=== PATIENT | female | born 1955 | race Caucasian/White ===

== ENCOUNTER 2023-10-01 19:15 | Emergency (ER) | payer MEDICARE, OTHER, SELFPAY ==
[2023-10-01 19:22] VITALS: BP 150/84
--- NOTE | 2023-10-01 19:51 | ED.GENMED ---
History of Present Illness
General
Chief Complaint: Heart Rate Problem
Source: patient and family
Exam Limitations: none
Time Seen by Provider: 10/01/23 19:35
Travel History
Have you had any contact with someone who has COVID-19?: No
Do you have any symptoms of coronavirus? Fever > 100 degrees, chills, cough, shortness of breath, sore throat, loss of taste or smell, muscle aches, or headache?: No
History of Present Illness
History of Present Illness:
68-year-old female with 4 to 5 days of tachycardia heart pounding racing episodes of diaphoresis. No chest pain. Some mild shortness of breath. Patient had had an epidural injection later last week. She restarted Mounjaro 5 days ago. Symptoms
started 4 days ago. Started on a beta-nidhi 12.5 mg metoprolol. This has been increased to 25 twice daily. Has seen cardiology. No history of arrhythmia issues. No underlying CAD. Some weight loss over the last week
Past History
Past History
ED Past Medical History: Arrthythmia (sinus tachycardia), GERD, HTN, Hypercholesterolemia and Other (multiple sclerosis, chronic back pain)
ED Past Surgical History: Cholecystectomy, (times 3), Orthopedic (Lumbar laminectomy 2013, lumbar discectomy june 2019) and Other (tummy Tuck, Lap band in and then lap band out, breast reduction surgery, all stone removal 2016)
Social History
Tobacco: Former smoker
Alcohol: None
Drug: None
Personal:
Living: with family
Employment: Employed
Family History
Family History: Other (reviewed and noncontributory)
Review of Systems
Review of Systems
All Other Systems: Not applicable
Constitutional: Denies fever
Cardiac: Denies chest pain or syncope
ABD/GI: Reports diarrhea; Denies abdominal pain
: Reports no symptoms
Phy Exam
Physical Exam
Physical Exam:
GENERAL: Alert and oriented in no apparent distress
EYE: Orbits normal.
NECK: Supple, no thyroid palpable
ENT: Pharynx without erythema
CARDIAC: Borderline tachycardic and regular no murmur.
LUNGS: Clear breath sounds,normal
ABDOMEN: Soft, without focal tenderness or distention
NEUROLOGICAL: Alert and oriented , grossly non-focal
SKIN: Warm and dry, no rash or lesion, no discoloration, skin intact.
MUSCULOSKELETAL: No edema,no deformity.Good color. Good color. No cyanosis or mottling. Good distal pulses
PSYCH: Normal and appropriate interaction.
Course
Orders/Labs/Results
Orders:
Orders
10/01/23 19:17
Electrocardiogram (*1) Urgent
Reason for Study: Tachycardia
EKG- Treatment ONCE
10/01/23 19:47
CT Chest Pe Study Urgent
Comment:
Reason For Exam: sob tachy
Cardiac Monitoring- Treatment ONCE
IV Insert/Care/Rem.- Treatment PRN
0.9% Sodium Chloride 1000 ml [Nss] 1,000 ml IV BOLUS
Pulse Ox/cont/shift [RESP] Stat
Quantity: 1
10/01/23 20:08
Complete Blood Count/With Diff Urgent
Comprehensive Metabolic Panel Urgent
Free T4 Urgent
TSH Reflex To Free T4 Urgent
Troponin I Urgent
10/01/23 22:48
Methimazole [Tapazole] 10 mg PO NOW STA
Abnormal Lab Results
10/01/23
20:08
Hgb 11.4 L g/dL
(12.0-16.0)
Hct 33.3 L %
(37.0-47.0)
MCV 77.4 L fL
(81.0-99.0)
MCH 26.5 L pg
(27.0-31.0)
Absolute Neuts (auto) 6.6 H 10^3/uL
(1.4-6.5)
Absolute Monos (auto) 1.5 H 10^3/uL
(0.1-0.6)
Monocytes % 13.8 H %
(1.7-9.3)
BUN 35 H mg/dl
(7-17)
Glucose 117 H mg/dl
(70-99)
Total Bilirubin 1.7 H mg/dl
(0.2-1.3)
ALT 54 H U/L
(0-35)
TSH (Reflex) < 0.02 L uIU/ml
(0.47-4.68)
Free T4 6.38 H ng/dl
(0.78-2.19)
10/01/23 20:08
10/01/23 20:08
Vital Signs
Initial and Last Documented VS:
Initial Vital Signs
Temp Pulse Resp BP Pulse Ox
98.5 F 113 18 150/84 99
10/01/23 19:22 10/01/23 19:22 10/01/23 19:22 10/01/23 19:22 10/01/23 19:22
Last Documented Vital Signs
Temp Pulse Resp BP Pulse Ox
98.5 F 107 16 127/64 96
10/01/23 19:22 10/01/23 22:30 10/01/23 22:30 10/01/23 22:08 10/01/23 22:30
MDM/Problems Addressed
Differential Diagnosis Includes:
Sinus tachycardia with some vague shortness of breath and episodes of diaphoresis. Patient preceding had an epidural which is unlikely to have any association. She has no symptoms related to this. She has no infectious symptoms. She has no
pleuritic chest pain. She does have mild shortness of breath. Considerations would include thyroid issue electrolyte issue. Pulmonary emboli. Workup in progress.
*Radiology
Radiology exam reviewed: radiology read reviewed (Negative CT of the chest)
*Pulse Oximetry
Patient hypoxic: no
*EKG
Interpreted by ED Provider?: Yes
Interpretation: abnormal
Comparison EKG: changes noted
Heart Rate: 110
Rate: tachycardiac
Rhythm: sinus
[place]: normal axis
Interval: normal interval
QRS Pattern: normal QRS
Ischemia: no ischemia
*Addresser Interpretation
Rate: tachycardiac
Interpretation: abnormal
Heart Rate: 106
Rhythm: sinus
*Critical Care Note
Total Time (30-74mins, 75-104mins- exclusive of procedures): Not Applicable
Update Note
Update Note:
Discussed with endocrinology. Methimazole 10 mg twice daily. Continue metoprolol and follow-up. Patient and family are comfortable with this approach.
ED Attending Note
-
Portions of this chart may have been created with voice recognition software.� Occasional wrong word or��sound alike� substitutions may have occurred due to the inherent limitations of voice recognition software.
Discharge Plan
Departure
Patient Disposition: Home (Routine Discharge)
Date of Disposition: 10/01/23
Time of Disposition: 22:42
Patient with high blood pressure during this ER visit?: Yes
Discharge Problem:
Hyperthyroidism, Tachycardia
Instructions: Hyperthyroidism (overactive thyroid), Tachycardia, BLOOD PRESSURE
Prescriptions:
New
methimazole 10 mg tablet
10 mg PO BID Qty: 60 0RF
No Action
atorvastatin 40 MG tablet
40 mg PO HS
losartan 25 MG tablet
25 mg PO DAILY
Mounjaro 15 mg/0.5 mL Pen Injector
15 mg SC FR
gabapentin 300 mg capsule
600 mg PO HS
gabapentin 100 mg capsule
200 mg PO DAILY
metoprolol succinate 25 mg tablet extended release 24 hr
25 mg PO BID@0800,1600
hydrochlorothiazide 12.5 mg tablet
12.5 mg PO DAILY
Referrals:
Melly Navas MD [Consulting Staff] - Follow up in 2-3 days
Shu Richardson DO [Family Provider] - Follow up in 2-3 days
Activity Restrictions/Additional Instructions:
The endocrinology group should call you tomorrow for close follow-up
Interventions
Interventions:
*Risk Screen - Suicide Last Done: 10/01/23 19:22
*General Assessment Last Done: 10/01/23 19:22
*Neglect/Abuse Screening Last Done: 10/01/23 19:22
ED- Fall Risk Assessment Last Done: 10/01/23 20:19
*ED COVID-19 Vaccine History Last Done: 10/01/23 20:19
*Nursing Disposition Last Done: 10/01/23 22:53
ED- Cardiac Assessment Last Done: 10/01/23 20:59
ED- Pulmonary Assessment Last Done: 10/01/23 20:59
Discharge Date and Time
Discharge Date/Time: 10/01/23 23:05
Print Language: NICARAGU[place]
[2023-10-01 19:58] VITALS: BMI 27.6
[2023-10-01 20:07] VITALS: BP 135/77
[2023-10-01] MEDS: NSS 1000 IV (20:10)
[2023-10-01 20:19] LABS: % Basophils 0.8 % (0-2); % Eosinophils 0.9 % (0-6); % Immature Granulocytes 0.3 % (0-0.5); % Lymphocytes 21.9 % (20.5-51.1); % Monocytes 13.8 % (1.7-9.3); % Neutrophils 62.3 % (42.2-75.2); Absolute Basophils 0.1 10^3/uL (0-0.2); Absolute Eosinophils 0.1 10^3/uL (0-0.7); Absolute Lymphocytes 2.3 10^3/uL (1.2-3.4); Absolute Monocytes 1.5 10^3/uL (0.1-0.6); Absolute Neutrophils 6.6 10^3/uL (1.4-6.5); Hematocrit 33.3 % (37.0-47.0); Hemoglobin 11.4 g/dL (12.0-16.0); Mean Corp Hgb Conc. 34.2 g/dL (33.0-37.0); Mean Corpuscular Hgb 26.5 pg (27.0-31.0); Mean Corpuscular Volume 77.4 fL (81.0-99.0); Mean Platelet Volume 10.2 fL (7.4-10.4); Nucleated Red Blood Cells % 0 %; Platelet Count 298 10^3/uL (130-400); Red Cell Dist. Width 12.7 % (11.5-14.5); White Blood Cell Count 10.5 10^3/uL (4.8-10.8)
[2023-10-01 20:30] LABS: ALT (SGPT) 54 U/L (0-35); AST (SGOT) 29 U/L (14-36); Albumin 4.4 g/dl (3.5-5.0); Alkaline Phosphatase 98 U/L (38-126); Blood Urea Nitrogen 35 mg/dl (7-17); Calcium 9.8 mg/dl (8.4-10.2); Carbon Dioxide 26 mmol/L (22-30); Chloride 102 mmol/L (98-107); Estimated Creatinine Clearance 76 ml/min; Glucose 117 mg/dl (70-99); Potassium 3.7 mmol/L (3.5-5.1); Sodium 138 mmol/L (135-145); Total Bilirubin 1.7 mg/dl (0.2-1.3); Total Protein 7.2 g/dl (6.3-8.2); eGFR > 60.00
[2023-10-01 20:43] LABS: Troponin I < 0.012 ng/ml
[2023-10-01 21:00] LABS: TSH Reflex To Free T4 < 0.02 uIU/ml (0.47-4.68)
[2023-10-01 21:57] LABS: Free T4 6.38 ng/dl (0.78-2.19)
[2023-10-01 22:08] VITALS: BP 127/64
[2023-10-01] MEDS: TAPAZOLE 10 MG PO (22:59)
== END 2023-10-01 23:05 | disposition home or self-care (01) ==
LOC: EMR 19:15
PROVIDERS: EMERGENCY PHYSICIAN Emergency Medicine; FAMILY PHYSICIAN Family Medicine
DX: E05.90 Thyrotoxicosis, unspecified without thyrotoxic crisis or storm (principal); R00.0 Tachycardia, unspecified; K21.9 Gastro-esophageal reflux disease without esophagitis; I10 Essential (primary) hypertension; E78.00 Pure hypercholesterolemia, unspecified; G35 Multiple sclerosis; G89.29 Other chronic pain; Z87.891 Personal history of nicotine dependence; Z90.49 Acquired absence of other specified parts of digestive tract
CPT/HCPCS: 99284; 96360; 71275; 80053; 84439; 84443; 84484; 85025; 93005; Q9967

== ENCOUNTER → 2023-10-30 08:49 | Outpatient (REF) | payer MEDICARE, OTHER, SELFPAY | LOC: HWRAD 08:49 | PROVIDERS: ATTENDING PHYSICIAN Internal Medicine Endocrinology, Diabetes & Metabolism; FAMILY PHYSICIAN Family Medicine | DX: E05.90 Thyrotoxicosis, unspecified without thyrotoxic crisis or storm (principal) | CPT/HCPCS: 76536 ==

== ENCOUNTER → 2024-04-02 12:00 | Outpatient (REF) | payer MEDICARE, OTHER, SELFPAY | LOC: RAD 12:00 | PROVIDERS: ATTENDING PHYSICIAN Family Medicine | DX: R19.8 Other specified symptoms and signs involving the digestive system and abdomen (principal); R10.30 Lower abdominal pain, unspecified | CPT/HCPCS: 74150 ==

== ENCOUNTER → 2024-06-06 06:41 | Outpatient (REF) | payer MEDICARE, OTHER, SELFPAY | LOC: MRI 06:41 | PROVIDERS: ATTENDING PHYSICIAN Psychiatry & Neurology Neurology; FAMILY PHYSICIAN Family Medicine | DX: G35 Multiple sclerosis (principal) | CPT/HCPCS: 70551 ==